=== PATIENT | male | born 1975 | race Caucasian/White ===

== ENCOUNTER 2021-02-09 10:46 | Outpatient (CLI) | payer BC | END 2021-02-09 10:47 | disposition home or self-care (01) | LOC: NAV RAD 10:46 | PROVIDERS: ATTEND Family Medicine | DX: I10 Essential (primary) hypertension (principal) ==

== ENCOUNTER 2023-08-27 14:28 | Outpatient (CLI) | payer BC | END 2023-08-27 14:29 | disposition home or self-care (01) | LOC: NAV RAD 14:28 | PROVIDERS: ATTEND Nurse Practitioner Family | DX: M17.11 Unilateral primary osteoarthritis, right knee (principal) ==